=== PATIENT | female | born 1990 | race American Indian/Alaskan Native ===

== ENCOUNTER 2017-11-05 06:44 | Inpatient (IN) | payer OTHER ==
[2017-11-05 07:16] VITALS: BMI 37.5
[2017-11-05] MEDS: Lactated Ringer's 1,000 ML IV SCH ×3 (07:30→21:47)
[2017-11-05 07:49] LABS: BASO % 0.4 % (0.0-2.0); EOS # 0.1 K/uL (0.0-0.7); EOS % 1.4 % (0.0-4.0); HEMOGLOBIN 14.5 g/dL (12.0-16.0); LYMPH # 2.1 K/uL (1.0-4.3); LYMPH % 29.1 % (20.0-40.0); MEAN CELL VOLUME 95.4 fl (81.0-99.0); MEAN CORPUSCULAR HEMOGLOBIN 31.7 pg (27.0-31.0); MEAN CORPUSCULAR HGB CONC 33.2 g/dL (33.0-37.0); MEAN PLATELET VOLUME 8.2 fl (7.2-11.7); MONO # 0.6 K/uL (0.0-0.8); MONO % 8.9 % (0.0-10.0); NEUT # 4.2 K/uL (1.8-7.0); NEUT % 60.2 % (50.0-75.0); NRBC % 0.1 % (0.0-0.0); RBC 4.57 Mil/uL (3.80-5.20); RED CELL DISTRIBUTION WIDTH 13.9 % (11.5-14.5); WHITE BLOOD COUNT 7.1 K/uL (4.8-10.8)
[2017-11-05] MEDS ORDERED: Oxytocin 30 units/LR 500ML 30 U/500 ML BAG IV ONE (07:53)
[2017-11-05] MEDS ORDERED: ceFAZolin IV 2 gm in Dextrose 2 GM/50 ML BAG IVPB ONE (07:56)
[2017-11-05] MEDS ORDERED: Morphine 5 mg/10 ml preservative-free Inj(Duramorph) ONE (09:37)
[2017-11-05] MEDS ORDERED: Phenylephrine 10 mg/ml Inj ONE ×2 (09:50→09:52)
[2017-11-05] MEDS ORDERED: ePHEDrine 50 mg/ml Inj ONE (10:11)
[2017-11-05] MEDS ORDERED: DiphenhydrAMINE 50 mg/ml Inj IVP PRN (10:57)
[2017-11-05] MEDS ORDERED: Lactated Ringer's 1,000 ML IV SCH (11:30)
[2017-11-05] MEDS: Simethicone 80 mg Chewtab PO SCH ×2 (16:50→21:41)
[2017-11-06] MEDS: Simethicone 80 mg Chewtab PO SCH ×4 (03:35→21:51)
[2017-11-06 06:32] LABS: HEMOGLOBIN 11.8 g/dL (12.0-16.0); MEAN CELL VOLUME 95.2 fl (81.0-99.0); MEAN CORPUSCULAR HEMOGLOBIN 31.3 pg (27.0-31.0); MEAN CORPUSCULAR HGB CONC 32.8 g/dL (33.0-37.0); RBC 3.76 Mil/uL (3.80-5.20); RED CELL DISTRIBUTION WIDTH 13.7 % (11.5-14.5); WHITE BLOOD COUNT 11.3 K/uL (4.8-10.8)
[2017-11-06] MEDS: Lactated Ringer's 1,000 ML IV SCH (06:35)
--- NOTE | 2017-11-06 07:21 | OBPPN ---
Datetime: 11/06/2017 07:15 PP Pain Prov: Within normal limits PP Nausea Prov: Denies PP Flatus Prov: No PP BM Prov: No PP Abdomen/Uterus Prov: Normal PP Lochia Prov: Normal PP Extremities Prov: Normal PP C/S Incision Prov: Normal PP Progress Prov: Normal PP Comments Phys Exam Prov: Incision: w/ bandage in place PP Impression Prov: Normal progression PP Plan Prov: Continue present management PP Progress Note Prov: POD 1 s/p Repeat c/s, doing well, trying to breast feed Advance diet to regular Encourage OOB Vital Signs Provider PP: Reviewed
--- NOTE | 2017-11-06 11:18 | OBHP ---
Datetime: 11/05/2017 14:49 Admit Comment, IP Provider: Late entry Patient is a 27-year-old with an EDC of 1231 by a 24 week ultrasound who presents for a r epeat section. She denies contractions decreased movement or vaginal bleeding. She is a patient of Dr. Alana upton. Her OB history has been remarkable for diagnosis of hypothyroid and pre gnancy. 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 Extremities - PN: Normal Abdomen - PN: Normal Back - PN: Normal Lungs - PN: Normal Heart - PN: Normal Neurologic - PN: Normal HEENT - PN: Normal General - PN: Normal FHR - Baseline A Provider: 140 Membranes, Provider: Intact Vital Signs Provider: Within Normal Limits NICHD Variability Prov Fetus A: Moderate 6-25bpm NICHD Accel Fetus A IP Provider: [id number] FHR Category Provider Fetus A: Category I NICHD Decel Fetus A IP Provider: None Genitourinary Exam: Normal
--- NOTE | 2017-11-06 11:25 | OBDS ---
DELIVERY PERSONNEL Delivery Doctor: Clemente Haskins Entry Processor: MborreoRN/VMlozaRN Anesthesiologist: Dr Hartley Resident: Dr Mcginnis MATERNAL INFORMATION Delivery Anesthesia: Spinal Medications in Delivery: Pitocin Estimated Blood Loss (ml): 700 Placenta Cultured: No Maternal Complications: None Provider Comments: or dictated LABOR SUMMARY EDC: 11/10/2017 00:00 No. Babies in Womb: 1 Attempted: No Labor Anesthesia: None LABOR INFORMATION Reason for Induction: Not Applicable Oxytocin: N/A Group B Beta Strep: Negative Antibiotics # of Doses: Ancef 2 grams Antibiotics Time of Last Dose: 0900 Steroids Given: None Reason Steroids Not Administered: Not Applicable MEMBRANES Membranes Rupture Method: Artificial Rupture of Membranes: 11/05/2017 10:15 Length of Rupture (hrs): 0.02 Amniotic Fluid Color: Clear Amniotic Fluid Amount: Moderate Amniotic Fluid Odor: Normal STAGES OF LABOR Stage 3 hrs: 0 Stage 3 min: 1 CSECTION DELIVERY Primary Indication: Repeat Elective CSection Urgency: N/A CSection Incidence: Repeat Labor: No Labor Elective: Elective CSection Incision: Lower Uterine Transverse BABY A INFORMATION Infant Delivery Date/Time: 11/05/2017 10:16 Method of Delivery: Born in Route : No : N/A Forceps: N/A Vacuum Extraction: N/A Shoulder Dystocia : No SHOULDER DYSTOCIA BABY A Infant Delivery Date/Time: 11/05/2017 10:16 PRESENTATION/POSITION BABY A Presentation: Cephalic Cephalic Presentation: Vertex Breech Presentation: N/A PLACENTA INFORMATION BABY A Placenta Delivery Time : 11/05/2017 10:17 Placenta Method of Delivery: Expressed Placenta Status: Delivered SCORES BABY A Heart Rate 1 min: >100 bpm Resp Effort 1 min: Good Cry Reflex Irritability 1 min: Cough or Sneeze or Pulls Away Muscle Tone 1 min: Active Motion Color 1 min: Body [place], Extremities Blue Resuscitation Effort 1 min: Tactile Stimulation SCORE 1 MIN: 9 Heart Rate 5 min: >100 bpm Resp Effort 5 min: Good Cry Reflex Irritability 5 min: Cough or Sneeze or Pulls Away Muscle Tone 5 min: Active Motion Color 5 min: Body [address], Extremities Blue Resuscitation Effort 5 min: N/A SCORE 5 MIN: 9 INFANT INFORMATION BABY A Gestational Age at Delivery: 39.0 Gestational Status: Term Infant Outcome : Liveborn Infant Condition : Stable Infant Sex: Male IDENTIFICATION/MEDS BABY A ID Band Number: [id number] ID Band Location: Left Leg; Left Arm Vitamin K Given : Not Given Erythromycin Given: Not Given WEIGHT/LENGTH BABY A Infant Birthweight (gms): 3340 Weight (lb): 7 Infant Weight (oz): 6 Infant Length Inches: 21.00 Infant Length cms: 53.3 CORD INFORMATION BABY A No. Cord Vessels: 3 Nuchal Cord : N/A Nuchal Cord Other: n/a True Knot: n/a Infant Cord pH Baby Venous: n/a Cord Blood Taken: Yes Banking/Donate Info: n/a Suction: Mouth; Nose ASSESSMENT BABY A Complications: None Physical Findings at Delivery: Within Normal Limits Respirations: Appears Normal Nurse Case Management/ALS Called : No Care By: Dr Anderson/Mireya Livingston/Niurka
--- NOTE | 2017-11-06 13:42 | OP ---
PROCEDURE DATE: 11/05/2017 PREOPERATIVE DIAGNOSES: 1. A 39.2-week . 2. History of prior delivery. POSTOPERATIVE DIAGNOSES: 1. A 39.2-week . 2. History of prior delivery. PROCEDURE: A repeat low-transverse section. SURGEON: Beatriz Cano MD. HOME THEATER SPECIALIST: Dr. Erik Us MD. RESIDENT: Dr. Sultan Mcginnis, PGY-1 TYPE OF ANESTHESIA: Spinal. ANESTHESIA ADMINISTERED BY: Dr. Hartley FINDINGS: Showed a viable male infant in cephalic presentation with clear amniotic fluid. Weight is 7 pounds 6 ounces. Apgars of 9 and 9. Grossly normal uterus, bilateral tubes and ovaries. Parker catheter to drainage. DESTINATION: The patient to recovery room in satisfactory condition and to nursery. ESTIMATED BLOOD LOSS: 650 mL. COMPLICATIONS: None. INDICATIONS: The patient is a 27-year-old female, G2, P1 with an EDC of 11/10/2017, who presented at 39.2 weeks for an elective repeat section. She is a patient of Dr. Carnes, who is on a vacation. An informed consent was obtained for , risks, benefits, indications and she agreed with planned procedure. DESCRIPTION OF PROCEDURE: The patient was taken to the operating room where she underwent a spinal anesthesia. She was then placed in the dorsal supine position with a leftward tilt and prepped and draped in the routine sterile fashion. A Pfannenstiel skin incision was made at the site of the old scar. This was carried down to the underlying rectus fascia, which was incised in the midline and extended bilaterally. The inferior rectus fascial edge was grasped with Anaya's and the underlying rectus muscle was dissected off. The same procedure was performed along the superior rectus fascial edge. The rectus muscle was elevated on either side with allis clamps and the abdominal cavity was entered. The peritoneum was incised in a superior and inferior fashion. The bladder blade was placed and the bladder flap was created using sharp and blunt dissection. A lower uterine transverse incision was made with a knife and the uterine cavity was entered bluntly. The uterine incision was digitally extended laterally and in a cephalocaudad manner. The amniotic membrane was ruptured. Clear fluid was noted. The was delivered in the routine fashion. The Mouth and nares suctioned. The cord clamped and cut. The baby handed off to the awaiting instrument/control technician. Cord blood was collected. The placenta was spontaneously delivered. The uterus was exteriorized and cleared of all clots and debris. The uterine incision was reapproximated with 0 Vicryl in a running fashion followed by an imbricated stitch using 0 Monocryl. The abdominal cavity was irrigated and cleared of all clots and debris. The uterus was returned to the abdomen and the uterine incision was reinspected. Good hemostasis was confirmed. The pelvic cavity was irrigated. The peritoneum was reapproximated with 2-0 Vicryl in a running fashion. The muscle was reapproximated with 2-0 Vicryl in a running fashion. The fascia was reapproximated with 0 Vicryl in a running fashion beginning in the right lateral corner going to the midline. Another stitch begin at the left lateral corner going to midline. Each suture was respectively tied. The wound was irrigated, good hemostasis was confirmed. The subcutaneous tissue was closed with 2-0 plain. The subcuticular was used to close the skin with 4-0 Vicryl. Of note, Dr. Us was the first surgical scrub tech. He assisted in surgical entry, surgical hemostasis, delivery of baby and surgical exposure. His assistance was essential to the procedure. All sponges, lap and needle count was correct. The patient was returned to recovery room in satisfactory condition. Beatriz Cano MD [facility]
[2017-11-06] MEDS ORDERED: Lactated Ringer's 500 ML IV SCH ×4 (14:00→21:00)
--- NOTE | 2017-11-06 14:04 | CP.PCM.PN ---
Subjective - Date & Time of Evaluation Date of Evaluation: 11/06/17 Time of Evaluation: 13:59 - Subjective Subjective: Anesthesia progress note Called to bedside by RN regarding patients complaint of head and neck pain. Patient seen at bedside; family present. Patients states onset was approximately 800, pain described as postitional, and includes neck and the back of shoulders bilaterally. Made worse with sitting/standing such as during breast feeding. No complaints of sensory/neuromuscular dysfunction and/or change from baseline. Discussed conservative management extensivley with both patient and present family member; patient does not want to consider any invasive intervention at this time. Will bolus and administer fiorecet; all questions answered and concerns addressed that the patient and present family had/expressed. Will follow as needed Ollie Carrillo MD Objective - Medications Medications: Current Medications Acetaminophen/Butalbital/Caffeine (Fioricet) 2 tab PO Q6 MAXINE Diphenhydramine HCl (Benadryl) 50 mg IVP Q6 PRN PRN Reason: Itching / Pruritus Lactated Ringer's (Lactated Ringer's) 1,000 mls @ 125 mls/hr IV .Q8H MAXINE Last Admin: 11/06/17 06:35 Dose: 125 mls/hr Ibuprofen (Motrin Tab) 600 mg PO Q4H PRN PRN Reason: Pain, Mild (1-3) Last Admin: 11/06/17 08:54 Dose: 600 mg Ketorolac Tromethamine (Toradol) 30 mg IVP Q6 PRN PRN Reason: Pain, moderate (4-7) Stop: 11/06/17 23:59 Metoclopramide HCl (Reglan) 10 mg IVP Q6H PRN PRN Reason: Nausea/Vomiting Last Admin: 11/05/17 16:41 Dose: 10 mg Morphine Sulfate (Morphine) 4 mg IV Q3H PRN PRN Reason: Pain, severe (8-10) Stop: 11/06/17 23:59 Ondansetron HCl (Zofran Inj) 4 mg IVP Q6 PRN PRN Reason: Nausea/Vomiting Last Admin: 11/05/17 21:40 Dose: 4 mg Oxycodone/Acetaminophen (Percocet 5/325 Mg Tab) 1 tab PO Q4 PRN PRN Reason: Pain, moderate (4-7) Stop: 11/08/17 11:27 Oxycodone/Acetaminophen (Percocet 5/325 Mg Tab) 2 tab PO Q4 PRN PRN Reason: Pain, severe (8-10) Stop: 11/08/17 11:27 Sennosides (Senokot Tab) 17.2 mg PO HS [facility] Last Admin: 11/05/17 21:41 Dose: 17.2 mg Simethicone (Mylicon Chew Tab) 80 mg PO Q6 [facility] Last Admin: 11/06/17 09:14 Dose: 80 mg - Labs Labs: 11/06/17 06:20
[2017-11-06] MEDS ORDERED: Apap-Butalbital-Caffeine 325-50-40mg Tab PO SCH ×2 (16:00→22:00)
--- NOTE | 2017-11-06 19:36 | PCM.ANES ---
Anesthesia Emergent Intubation - Diagnosis Working Diagnosis:: impending respiratory failure - Consult Reason for Consult:: intubate - Intubation Attempts Previous Number of Intubation Attempts:: 0 - Pre-Intubation Vital Signs Oxygen Delivery Method: Ambu-Bag Level Of Consciousness: Unable to follow directions Intubation Meds Given: Etomidate, Versed
[2017-11-06] MEDS ORDERED: Lactated Ringer's 1,000 ML IV SCH (21:00)
[2017-11-06] MEDS: Apap-Butalbital-Caffeine 325-50-40mg Tab PO PRN (21:48)
[2017-11-07] MEDS: Oxycodone/Acetaminophen 5/325 mg Tab PO PRN ×4 (02:39→20:37)
[2017-11-07] MEDS: Simethicone 80 mg Chewtab PO SCH ×4 (04:30→21:50)
[2017-11-07] MEDS: Apap-Butalbital-Caffeine 325-50-40mg Tab PO PRN (05:10)
--- NOTE | 2017-11-07 12:04 | OBPPN ---
Datetime: 11/07/2017 12:01 PP Pain Prov: Within normal limits PP Nausea Prov: Denies PP Flatus Prov: Yes PP Breasts Prov: Normal PP Heart Prov: Normal PP Lungs Prov: Normal PP Abdomen/Uterus Prov: Normal PP Lochia Prov: Normal PP Vulva/Perineum Prov: Normal PP CVA Tenderness Prov: Normal PP Extremities Prov: Normal PP C/S Incision Prov: Normal PP Impression Prov: Normal progression PP Plan Prov: Continue present management PP Progress Note Prov: Patient reports some back discomfort relieved with Percocet. Vital signs stable afebrile Uterus from below the umbilicus Incision clean dry and intact She is no Homans Postoperative day #2 e ncourage ambulation, Motrin as needed, anticipate discharge Vital Signs Provider PP: Reviewed
--- NOTE | 2017-11-07 16:10 | CP.PCM.PN ---
Subjective - Date & Time of Evaluation Date of Evaluation: 11/07/17 Time of Evaluation: 10:40 - Subjective Subjective: Anesthesiology Note: I was called by the nurse to re -evaluate patient complaint of posterior neck pain. The patient underwent section under spinal anesthesia. The following day DR. Kelley was called to evaluate patient complaint of posterior neck pain, heaviness made worse by sitting and standing positions, relieved by lying down. The neck pain was presumed to be post-dural puncture headache. She was managed conservatively with hydration, bed rest, fiorecet, and analgesic. During evaluation,the patient is lying down comfortably and stated that on lying down she has no pain. She stated her concern about analgesic and that Percocet is the only effective analgesic and that Ibuprofen has no effect.She is concerned that she might be dependent on Percocet.Her concern about this was reassured.Meanwhile I positioned the head part of the bed in the upright position. At this position her headache was 2/10. Will continue hydration , analgesic , and bed rest. Objective - Medications Medications: Current Medications Diphenhydramine HCl (Benadryl) 50 mg IVP Q6 PRN PRN Reason: Itching / Pruritus Lactated Ringer's (Lactated Ringer's) 1,000 mls @ 150 mls/hr IV .Q6H40M MAXINE Last Admin: 11/06/17 21:00 Dose: 150 mls/hr Ibuprofen (Motrin Tab) 800 mg PO Q8 MAXINE Metoclopramide HCl (Reglan) 10 mg IVP Q6H PRN PRN Reason: Nausea/Vomiting Last Admin: 11/05/17 16:41 Dose: 10 mg Ondansetron HCl (Zofran Inj) 4 mg IVP Q6 PRN PRN Reason: Nausea/Vomiting Last Admin: 11/05/17 21:40 Dose: 4 mg Oxycodone/Acetaminophen (Percocet 5/325 Mg Tab) 1 tab PO Q4 PRN PRN Reason: Pain, moderate (4-7) Stop: 11/08/17 11:27 Last Admin: 11/07/17 13:04 Dose: 1 tab Oxycodone/Acetaminophen (Percocet 5/325 Mg Tab) 2 tab PO Q4 PRN PRN Reason: Pain, severe (8-10) Stop: 11/08/17 11:27 Sennosides (Senokot Tab) 17.2 mg PO HS [facility] Last Admin: 11/06/17 21:52 Dose: 17.2 mg Simethicone (Mylicon Chew Tab) 80 mg PO Q6 [facility]AC[facility] Last Admin: 11/07/17 08:52 Dose: 80 mg - Labs Labs: 11/06/17 06:20
[2017-11-07] MEDS: Lactated Ringer's 1,000 ML IV SCH (16:37)
[2017-11-07] MEDS ORDERED: Influenza Vaccine 18yr & older 0.5 ML/45 MCG SYR IM ONE (21:00)
[2017-11-08] MEDS: Lactated Ringer's 1,000 ML IV SCH (02:30)
[2017-11-08] MEDS: Oxycodone/Acetaminophen 5/325 mg Tab PO PRN (03:00)
[2017-11-08] MEDS: Simethicone 80 mg Chewtab PO SCH ×2 (03:02→10:07)
--- NOTE | 2017-11-08 08:45 | CP.PCM.PN ---
Subjective - Date & Time of Evaluation Date of Evaluation: 11/08/17 Time of Evaluation: 08:30 - Subjective Subjective: Posterior neck pain and shoulder pain radiating to the back of the arms bilaterally. Absent blurring of vision nor auditory problem. Pain the same quality whether laying in bed nor sitting/standing. Objective - Medications Medications: Current Medications Diphenhydramine HCl (Benadryl) 50 mg IVP Q6 PRN PRN Reason: Itching / Pruritus Lactated Ringer's (Lactated Ringer's) 1,000 mls @ 150 mls/hr IV .Q6H40M [facility] Last Admin: 11/06/17 21:00 Dose: 150 mls/hr Ibuprofen (Motrin Tab) 800 mg PO Q8 [facility] Last Admin: 11/08/17 01:11 Dose: 800 mg Metoclopramide HCl (Reglan) 10 mg IVP Q6H PRN PRN Reason: Nausea/Vomiting Last Admin: 11/05/17 16:41 Dose: 10 mg Ondansetron HCl (Zofran Inj) 4 mg IVP Q6 PRN PRN Reason: Nausea/Vomiting Last Admin: 11/05/17 21:40 Dose: 4 mg Oxycodone/Acetaminophen (Percocet 5/325 Mg Tab) 1 tab PO Q4 PRN PRN Reason: Pain, moderate (4-7) Stop: 11/08/17 11:27 Last Admin: 11/07/17 16:45 Dose: 1 tab Oxycodone/Acetaminophen (Percocet 5/325 Mg Tab) 2 tab PO Q4 PRN PRN Reason: Pain, severe (8-10) Stop: 11/08/17 11:27 Last Admin: 11/08/17 03:00 Dose: 2 tab Sennosides (Senokot Tab) 17.2 mg PO HS [facility] Last Admin: 11/07/17 21:50 Dose: 17.2 mg Simethicone (Mylicon Chew Tab) 80 mg PO Q6 [facility] Last Admin: 11/08/17 03:02 Dose: 80 mg - Labs Labs: 11/06/17 06:20 Assessment and Plan - Assessment and Plan (Free Text) Assessment: Possible pinch nerve with radiculopathy from neck muscle spasm vs herniated disc. Plan: Warm compress over the posterior cervical area for 20 mins TID. Motrin prn Massage therapy prn Muscle relaxant if not breast feeding. Discussed case with Dr. Gil (pain specialist) Advised patient to see Neurologist if pain gets worse or persists after a week.
[2017-11-08 19:32] VITALS: BP 119/60; PULSE 62; RESP 20; TEMP 98; O2SAT 98
== END 2017-11-08 13:20 | disposition home or self-care (01) | DRG 371 ==
LOC: H.EROB2 06:44 → H.L&D 07:18 → H.OB/GYN 16:34
PROVIDERS: ADMIT Obstetrics & Gynecology; ATTEND Obstetrics & Gynecology
PROC: 10D00Z1 Extraction of Products of Conception, Low, Open Approach (ICD-10-PCS; principal; 2017-11-05)
PROC: 4A1HXCZ Monitoring of Products of Conception, Cardiac Rate, External Approach (ICD-10-PCS; 2017-11-05)
DX: O34.211 Maternal care for low transverse scar from previous cesarean delivery (principal); E03.9 Hypothyroidism, unspecified; Z37.0 Single live birth; N85.8 Other specified noninflammatory disorders of uterus; O99.284 Endocrine, nutritional and metabolic diseases complicating childbirth; Z3A.39 39 weeks gestation of pregnancy